=== PATIENT | male | born 1975 ===

== ENCOUNTER 2017-04-13 00:01 | Emergency (ER) | payer OTHER ==
[2017-04-13 00:09] VITALS: BP 144/91; PULSE 92; RESP 18; TEMP 98.6; O2SAT 95
--- NOTE | 2017-04-13 00:48 | ED PDOC ---
Arrival/HPI <DustinGiorgio - Last Filed: 04/13/17 01:04> - General Historian: Patient <tatyanaMariangel Messi - Last Filed: 04/13/17 01:12> - General Chief Complaint: Abnormal Skin Integrity Time Seen by Provider: 04/13/17 00:22 - History of Present Illness Narrative History of Present Illness (Text): 04/13/17 00:43 41yo male with no PMHx who present with complaint of laceration to left 4th finger. States he accidentally cut his finger, over a dresser mirror, while moving the dresser this night. He denies any other complaint. Up to date with his TD vaccination. (Mariangel Curry A) Past Medical History - Provider Review Nursing Documentation Reviewed: Yes - Psychiatric Hx Substance Use: No <Mariangel Curry Messi - Last Filed: 04/13/17 01:12> Family/Social History - Physician Review Nursing Documentation Reviewed: Yes Family/Social History: Unknown Family HX Smoking Status: Never Smoked Hx Alcohol Use: No Hx Substance Use: No <Mariangel Curry - Last Filed: 04/13/17 01:12> Allergies/Home Meds <Dustin,Giorgio - Last Filed: 04/13/17 01:04> <Mariangel Curry Messi - Last Filed: 04/13/17 01:12> Allergies/Adverse Reactions: Allergies No Known Allergies Allergy (Verified 04/13/17 00:06) Home Medications: Home Meds Medication Instructions Recorded Confirmed No Known Home Med 04/13/17 04/13/17 Review of Systems - Physician Review All systems were reviewed & negative as marked: Yes - Review of Systems Constitutional: Normal Eyes: Normal ENT: Normal Respiratory: Normal Cardiovascular: Normal Gastrointestinal: Normal Genitourinary Male: Normal Musculoskeletal: Normal Skin: Laceration (Left 4th finger) Neurological: Normal Endocrine: Normal Hemo/Lymphatic: Normal Psychiatric: Normal <Mariangel Curry - Last Filed: 04/13/17 01:12> Physical Exam Vital Signs Reviewed: Yes Temperature: Afebrile Blood Pressure: Normal Pulse: Regular Respiratory Rate: Normal Appearance: Positive for: Well-Appearing, Non-Toxic, Comfortable Pain Distress: None Mental Status: Positive for: Alert and Oriented X 3 - Systems Exam Head: Present: Atraumatic, Normocephalic Pupils: Present: PERRL Extroacular Muscles: Present: EOMI Conjunctiva: Present: Normal Mouth: Present: Moist Mucous Membranes Neck: Present: Normal Range of Motion Respiratory/Chest: Present: Clear to Auscultation, Good Air Exchange. No: Respiratory Distress, Accessory Muscle Use Cardiovascular: Present: Regular Rate and Rhythm, Normal S1, S2. No: Murmurs Abdomen: Present: Normal Bowel Sounds. No: Tenderness, Distention, Peritoneal Signs Back: Present: Normal Inspection Upper Extremity: Present: Normal Inspection. No: Cyanosis, Edema Lower Extremity: Present: Normal Inspection. No: Edema Neurological: Present: GCS=15, CN II-XII Intact, Speech Normal Skin: Present: Warm, Dry, Normal Color, Laceration (0.5cm linear superficial laceration to left index tuft). No: Rashes Psychiatric: Present: Alert, Oriented x 3, Normal Insight, Normal Concentration <Mariangel Curry - Last Filed: 04/13/17 01:12> Vital Signs Temp Pulse Resp BP Pulse Ox 04/13/17 00:06 98.6 F 92 H 18 144/91 H 95 Medical Decision Making <Giorgio Chan - Last Filed: 04/13/17 01:04> <Mariangel Curry - Last Filed: 04/13/17 01:12> ED Course and Treatment: 04/13/17 01:11 Wound irrigated. Approximated with surgi seal and steri strip. Dressing applied. PT advised to keep wound clean and dry. Referred to her PMD. (Mariangel Curry) - PA / LAPPER / Resident Statement YESENIA has reviewed & agrees with the documentation as recorded. YESENIA has examined the patient and agrees with the treatment plan. <Giorgio Chan - Last Filed: 04/13/17 01:04> Disposition/Present on Arrival <Giorgio Chan - Last Filed: 04/13/17 01:04> - Present on Arrival Any Indicators Present on Arrival: No History of DVT/PE: No History of Uncontrolled Diabetes: No Urinary Catheter: No History of Decub. Ulcer: No History Surgical Site Infection Following: None - Disposition Have Diagnosis and Disposition been Completed?: Yes Disposition Time: 01:05 Patient Plan: Discharge <Mariangel Curry - Last Filed: 04/13/17 01:12> - Disposition Diagnosis: Finger laceration Disposition: HOME/ ROUTINE Patient Problems: Current Active Problems Problem Status Onset Finger laceration Acute Condition: STABLE Discharge Instructions (ExitCare): Finger Laceration (ED) Additional Instructions: Keep wound clean and dry Follow up with your doctor Return to ED for fever, discharge from wound and redness Referrals: Mariia Jones MD [Staff Provider] - Follow up with primary Forms: Say[employer] (Hungarian)
== END 2017-04-13 01:10 | disposition home or self-care (01) ==
LOC: ED 00:01
DX: S61.215A Laceration without foreign body of left ring finger without damage to nail, initial encounter (principal); W25.XXXA Contact with sharp glass, initial encounter; Y93.E9 Activity, other interior property and clothing maintenance; Y92.009 Unspecified place in unspecified non-institutional (private) residence as the place of occurrence of the external cause